=== PATIENT | female | born 1965 | race Caucasian/White ===

== ENCOUNTER 2018-10-06 19:00 | Emergency (ER) | payer MEDICAID ==
[~2018-10-06] VITALS: Ht 154.9 cm; Wt 68.9 kg
[~2018-10-06 19:00] MED LIST: LANTI SQ
[2018-10-06 19:23] VITALS: Ht 154.9 cm; Wt 68.9 kg
[2018-10-06 20:46] LABS: BASOPHIL % 0.6 % (0-2); PLATELET COUNT 378 x10^3mcL (130-400); RED CELL DISTRIBUTION WIDTH 13.7 % (11.5-14.5)
[2018-10-06 20:57] LABS: CALCIUM 9.1 mg/dL (8.5-10.1); CARBON DIOXIDE 27.7 mmol/L (21-32); CHLORIDE SERUM 101 mmol/L (98-107); GFR1 > 60 mL/min; GLUCOSE SERUM 361 mg/dL (74-106); POTASSIUM SERUM 3.9 mmol/L (3.5-5.1); SODIUM SERUM 136 mmol/L (136-145)
[2018-10-06 21:02] LABS: ALBUMIN 3.4 g/dL (3.4-5.0); ALKALINE PHOSPHATASE 135 U/L (46-116); ALT/SGPT 38 U/L (14-59); AMYLASE 56 U/L (25-115); AST/SGOT 12 U/L (15-37); BILIRUBIN TOTAL 0.3 mg/dL (0.20-1.00); LIPASE 201 IU/L (73-393); TOTAL PROTEIN, SERUM 6.5 g/dL (6.4-8.2)
[2018-10-06 22:44] VITALS: BP 142/54
== END 2018-10-06 22:44 | disposition home or self-care (01) ==
LOC: ED 19:00
PROVIDERS: Specialist
DX: K59.00 Constipation, unspecified (principal); R10.32 Left lower quadrant pain; Z90.89 Acquired absence of other organs; Z98.890 Other specified postprocedural states
CPT/HCPCS: 82962; J1885; J7030